=== PATIENT | male | born 1980 | race Caucasian/White ===

== ENCOUNTER 2022-01-12 06:50 | Emergency (ER) | payer OTHER ==
[2022-01-12 07:20] VITALS: BP 116/68; PULSE 67; TEMP 98.2; BMI 30.2
[2022-01-12 09:19] LABS: BASO % 1.1 % (0-2.0); EOS % 2.5 % (0-4.5); HEMATOCRIT 51.5 % (35.4-49); HEMOGLOBIN 18.1 GM/dL (11.7-16.9); LYMPH % 48.7 % (8-40); MCH 30.2 pg (25.7-33.7); MCHC 35.2 g/dl (32.0-35.9); MEAN CELL VOLUME 85.7 fl (80-96); MEAN PLT VOLUME 6.7 fl (7.5-11.1); MONO % 11.5 % (3.8-10.2); NEUT % 36.2 % (42.8-82.8); PLATELET COUNT 276 10^3/uL (134-434); RBC 6.01 M/mm3 (4.00-5.60); WHITE BLOOD COUNT 4.3 K/mm3 (4.0-10.0)
[2022-01-12 09:24] LABS: CALCIUM 9.4 mg/dL (8.5-10.1)
[2022-01-12 09:25] LABS: ALBUMIN 3.8 g/dl (3.4-5.0); BLOOD UREA NITROGEN 18.5 mg/dL (7-18)
[2022-01-12 09:29] LABS: CREATININE 0.9 mg/dL (0.55-1.3); TOT PROT 7.1 g/dl (6.4-8.2)
[2022-01-12 09:31] LABS: BILIRUBIN,TOTAL 0.5 mg/dL (0.2-1)
[2022-01-12] MEDS ORDERED: SODIUM CHLORIDE 0.9% 500 ML INFUS.BAG IV ONE (09:46)
[2022-01-12 12:32] LABS: BASO % 1.1 % (0-2.0); EOS % 2.3 % (0-4.5); HEMATOCRIT 52.6 % (35.4-49); HEMOGLOBIN 18.4 GM/dL (11.7-16.9); LYMPH % 54.7 % (8-40); MCH 30.3 pg (25.7-33.7); MEAN CELL VOLUME 86.4 fl (80-96); MEAN PLT VOLUME 6.5 fl (7.5-11.1); MONO % 7.4 % (3.8-10.2); NEUT % 34.5 % (42.8-82.8); PLATELET COUNT 284 10^3/uL (134-434); RBC 6.08 M/mm3 (4.00-5.60); RDW 12.2 % (11.9-15.9); WHITE BLOOD COUNT 4.3 K/mm3 (4.0-10.0)
== END 2022-01-12 13:20 | disposition home or self-care (01) ==
LOC: JER 06:50
DX: R07.9 Chest pain, unspecified (principal)
CPT/HCPCS: 36415; 71046-TC-FY; 80053; 84484; 85025; 93005; 93010; 99285-25

== ENCOUNTER 2022-06-25 15:06 | Emergency (ER) | payer SELFPAY ==
[2022-06-25 15:20] VITALS: BP 113/73; PULSE 69; RESP 16; TEMP 97.8; BMI 30.7
[2022-06-25] MEDS ORDERED: LACTATED RINGERS SOLUTION 1000 ML INFUS.BAG IV ONE (16:58)
[2022-06-25 18:53] LABS: BASO % 0.6 % (0-2.0); EOS % 1.7 % (0-4.5); HEMATOCRIT 50.8 % (35.4-49); HEMOGLOBIN 17.8 GM/dL (11.7-16.9); LYMPH % 45.1 % (8-40); MCH 30.5 pg (25.7-33.7); MEAN CELL VOLUME 87.1 fl (80-96); MEAN PLT VOLUME 6.5 fl (7.5-11.1); MONO % 10.7 % (3.8-10.2); NEUT % 41.9 % (42.8-82.8); PLATELET COUNT 324 10^3/uL (134-434); RBC 5.84 M/mm3 (4.00-5.60); RDW 11.9 % (11.9-15.9); WHITE BLOOD COUNT 4.5 K/mm3 (4.0-10.0)
[2022-06-25 19:06] LABS: BLOOD UREA NITROGEN 12.4 mg/dL (7-18)
[2022-06-25 19:07] LABS: ALBUMIN 4.2 g/dl (3.4-5.0)
[2022-06-25 19:11] LABS: BILIRUBIN,TOTAL 0.7 mg/dL (0.2-1); TOT PROT 7.8 g/dl (6.4-8.2)
== END 2022-06-25 21:22 | disposition home or self-care (01) ==
LOC: JER 15:06
DX: R42 Dizziness and giddiness (principal)
CPT/HCPCS: 0241U-QW; 36415; 71046-TC-FY; 80053; 84484; 85025; 93005; 93010; 99285-25